=== PATIENT | male | born 1980 | race Caucasian/White ===

== ENCOUNTER 2017-10-29 20:14 | Emergency (ER) | payer OTHER, SELFPAY ==
[2017-10-29 21:02] VITALS: BP 145/85; PULSE 80; RESP 18; TEMP 37; O2SAT 98; BMI 29.5
[2017-10-29 21:13] LABS: UTC Influenza A Antigen Negative (Negative); UTC Influenza B Antigen Negative (Negative); UTC Strep Screen (Rapid) Negative (Negative)
--- NOTE | 2017-10-29 21:25 | HMH.EDUTC ---
[facility] [place]ression: Upper respiratory virus Disposition: Home, Self-Care Condition on Discharge: Good Instructions: DI for Viral Upper Respiratory Infection -- Adult Additional Instructions: * No sign of bacterial infection. Likely viral. Virus can take 7-14 days to run their course. Sounds like the onset of the flu. The rapid test can be negative. The upper resp panel will give us a better idea of what is going on. Since we are closing, have your come over in the morning at 9 since she works here. I will not be here. She can just let them know you were here and I did the upper resp panel and she wants the results. In the meantime, treat yourself like you have the flu and separate yourself from the family once you are home. * Monitor Temp. Tylenol every 4 hours as needed no more then 5 times a day or 4000mg in 24 hours and/or ibuprofen every 6 hours as needed no more then 3200mg in 24 hours (as long as your primary care doctor has told you that it is ok to take both) for fever/aches/pain. ER if fever no less than 101 despite tylenol and ibuprofen * Encourage fluids, water, gatorade, powerade, pedialyte if /toddler/child * lots of rest * warm salt water gargles * warm fluids * sore throat lozenges * sleep elevated * humidifier/vaporizer * OTC cold/flu/sinus medication is ok but pick one. Do not take multiple different ones as they have similar ingredients and you can overdose on cold medication * * Your throat swab was sent for culture. Those results are typically sent to your primary care. Be sure to follow up in 2-3 days if no improvement so they can review those results and treat if necessary. If you don't have primary care, I recommend you get one but in the mean time, you will have to return to a walk in clinic. Referrals: Eamon Garcia MD [Primary Care Provider] - (here tomorrow for results then primary care or if you can't get in, here or ER IMMEDIATELY for new or worsening symptoms, improvement followed by suddenly feeling worse OR no noticeable improvement over the next 48-72 hours. 911 for difficulty breathing ) Forms: Work/School Release Time of Disposition: 21:36 Medical Decision Making Vital Signs: 10/29/17 21:02 Temperature 98.6 F Temperature Source Temporal Artery Scan Pulse Rate [Right] 80 Respiratory Rate 18 Blood Pressure [Right Arm] 145/85 Blood Pressure Mean [Right Arm] 105 Blood Pressure Source [Right Arm] Automatic Cuff Blood Pressure Position [Right Arm] Sitting 02 Sat by Pulse Oximetry 98 Oxygen Delivery Method Room Air - Lab Data Lab results reviewed: Yes: I reviewed the patient's lab results. Lab Results 10/29/17 21:11: Influenza Type A Ag Negative, Influenza Type B Ag Negative, Strep Scn Rapid Clinic Negative Orders (Tests/Meds): ORDERS Category Date Time Status Upper Respiratory Panel, PCR Stat Lab 10/29/17 21:30 Received Strep Screen Confirmation Stat Micro 10/29/17 21:11 Received - Michael Inquiry Pt receiving controlled substance: No [facility] [place] - General Stated complaint: sore throat Time Seen by Provider: 10/29/17 21:25 Mode of Arrival: Ambulatory Source of Information: Patient Limitations: No Limitations Description of Symptoms (Recalled from Triage Doc. by RN): SORE THROAT, FEVER BEGAN THIS AM HEENT Symptoms (Recalled from RN notes): Yes Resp Symptoms (Recalled from RN notes): No Skin Symptoms (Recalled from RN notes): No MS Symptoms (Recalled from RN notes): No Functional Status (Recalled from RN notes): N - History of Present Illness Provider Complaint: c/o really mainly my sore throat . Started at bedtime last night. Just didn't feel great overall . Woke up this morning feeling the same but when got to work, really tired and drianed suddenly. Slept for 2 hours in car before even going into work. Fever 101 and bodyaches around that time. Fever car painter helped. Mild cough, significant sore throat, rhinorrhea has all started t
--- NOTE | 2017-10-29 21:32 | ED_ITS ---
[facility] – [place] Disposition Clinical Impression: Upper respiratory virus Disposition: Home, Self-Care Condition on Discharge: Good Instructions: DI for Viral Upper Respiratory Infection -- Adult Additional Instructions: * No sign of bacterial infection. Likely viral. Virus can take 7-14 days to run their course. Sounds like the onset of the flu. The rapid test can be negative. The upper resp panel will give us a better idea of what is going on. Since we are closing, have your come over in the morning at 9 since she works here. I will not be here. She can just let them know you were here and I did the upper resp panel and she wants the results. In the meantime, treat yourself like you have the flu and separate yourself from the family once you are home. * Monitor Temp. Tylenol every 4 hours as needed no more then 5 times a day or 4000mg in 24 hours and/or ibuprofen every 6 hours as needed no more then 3200mg in 24 hours (as long as your primary care doctor has told you that it is ok to take both) for fever/aches/pain. ER if fever no less than 101 despite tylenol and ibuprofen * Encourage fluids, water, gatorade, powerade, pedialyte if /toddler/ child * lots of rest * warm salt water gargles * warm fluids * sore throat lozenges * sleep elevated * humidifier/vaporizer * OTC cold/flu/sinus medication is ok but pick one. Do not take multiple different ones as they have similar ingredients and you can overdose on cold medication * * Your throat swab was sent for culture. Those results are typically sent to your primary care. Be sure to follow up in 2-3 days if no improvement so they can review those results and treat if necessary. If you don't have primary care , I recommend you get one but in the mean time, you will have to return to a walk in clinic. Referrals: Eamon Garcia MD [Primary Care Provider] - (here tomorrow for results then primary care or if you can't get in, here or ER IMMEDIATELY for new or worsening symptoms, improvement followed by suddenly feeling worse OR no noticeable improvement over the next 48-72 hours. 911 for difficulty breathing * ) Forms: Work/School Release Time of Disposition: 21:36 Medical Decision Making Vital Signs: 10/29/17 21:02 Temperature 98.6 F Temperature Source Temporal Artery Scan Pulse Rate [Right] 80 Respiratory Rate 18 Blood Pressure [Right Arm] 145/85 Blood Pressure Mean [Right Arm] 105 Blood Pressure Source [Right Arm] Automatic Cuff Blood Pressure Position [Right Arm] Sitting 02 Sat by Pulse Oximetry 98 Oxygen Delivery Method Room Air - Lab Data Lab results reviewed: Yes: I reviewed the patient's lab results. Lab Results 10/29/17 21:11: Influenza Type A Ag Negative, Influenza Type B Ag Negative, Strep Scn Rapid Clinic Negative Orders (Tests/Meds): ORDERS Category Date Time Status Upper Respiratory Panel, PCR Stat Lab 10/29/17 21:30 Received Strep Screen Confirmation Stat Micro 10/29/17 21:11 Received - Michael Inquiry Pt receiving controlled substance: No [facility] [place] HPI - General Stated complaint: sore throat Time Seen by Provider: 10/29/17 21:25 Mode of Arrival: Ambulatory Source of Information: Patient Limitations: No Limitations Description of Symptoms (Recalled from Triage Doc. by RN): SORE THROAT, FEVER BEGAN THIS AM HEENT Symptoms (Recalled from RN notes): Yes Resp Symptoms (Recalled from RN notes): No Skin Symptoms (Recalled from RN notes): No MS Sympt
[2017-10-29 21:39] LABS: Adenovirus,PCR Not Detected (NotDetected); Bordetella Pertussis Not Detected (NotDetected); Chlamydophila Pneumoniae, PCR Not Detected (NotDetected); Coronavirus 229E Not Detected (NotDetected); Coronavirus NL63 Not Detected (NotDetected); Coronavirus OC43 Not Detected (NotDetected); Coronovirus HKU1,PCR Not Detected (NotDetected); Human Metapneumovirus Not Detected (NotDetected); Influenza A, PCR Not Detected (NotDetected); Influenza AH1, 2009 Not Detected (NotDetected); Influenza AH1, PCR Not Detected (NotDetected); Influenza AH3,PCR Not Detected (NotDetected); Influenza B, PCR Not Detected (NotDetected); Mycoplasma Pneumoniae, PCR Not Detected (NotDected); Parainfluenza 1, PCR Not Detected (NotDetected); Parainfluenza 2, PCR Not Detected (NotDetected); Parainfluenza 3, PCR Not Detected (NotDetected); Parainfluenza 4, PCR Not Detected (NotDetected); Respiratory Syncytial Virus Not Detected (NotDetected); Rhinovirus/Enterovirus Not Detected (NotDetected)
== END 2017-10-29 21:37 | disposition home or self-care (01) ==
PROVIDERS: Emergency Provider Nurse Practitioner Family; Family Provider Family Medicine; PCP Family Medicine
DX: J06.9 Acute upper respiratory infection, unspecified (principal); Z79.899 Other long term (current) drug therapy
CPT/HCPCS: 87486; 87581; 87633; 87798; 87804; 87880; 99201

== ENCOUNTER → 2020-10-06 11:40 | Outpatient (CLI) | payer OTHER, SELFPAY ==
--- NOTE | 2020-10-06 11:41 | CA_ITS ---
APPROVED REPORT Exam: Exercise Treadmill Technologist: Lorena Mcleod, Ht: 5 ft 9 in Wt: 218 lbs BSA: 2.14 m2 HR: 82 bpm BP: 141/92 mmHg Medical History Medications: Aspirin,,,,, Losartan,,,,, Stress Test Details Test: Luis F HR Resting HR: 93 bpm Max Heart Rate (APMHR): 181 bpm Max HR Achieved: 180 bpm Target HR (85% APMHR): 153 bpm % of APMHR: 99 Recovery HR: 113 bpm BP Resting BP: 144/93 mmHg Max BP: 218/90 mmHg Recovery BP: 144.0/762.0 mmHg ECG Resting ECG: NSR LPFB Clinical Exercise duration: 10:12 min Highest Stage Achieved: Exercise capacity: 12.8 METs Stress ECG Conclusion Pt exercised 10:12 on Luis F Protocol Max HR: 180 % of PM: 99% Max BP: 218/90 METs: 12.8 Test stopped due to: SOA, Fatigue Symptoms: No CP. No arm pain Arrythmias/Ectopy: None ST-T Changes: Normal ST response to exercise Conclusion: Normal GXT. GXT only (no images),hypertensive BP response Test Summary REST . . . . . . . Sitting REST 04:32 0.0 0.0 93 . 144/ 93 . . Stage 1 01:00 10.0 1.7 107 . . . . Stage 1 02:00 10.0 1.7 116 . . . . Stage 1 03:00 10.0 1.7 118 . 174/ 88 . . Stage 2 01:00 12.0 2.5 130 . . . . Stage 2 02:00 12.0 2.5 129 . . . . Stage 2 03:00 12.0 2.5 139 . 206/ 90 . . Stage 3 01:00 14.0 3.4 152 . . . . Stage 3 02:00 14.0 3.4 158 . . . . Stage 3 03:00 14.0 3.4 164 . 218/ 90 . . Stage 4 01:00 16.0 4.2 178 . . . . Stage 4 01:12 16.0 4.2 180 . . . Stop exercise at 10:12 RECOVERY 01:00 0.0 0.0 162 . 180/ 75 . . RECOVERY 02:00 0.0 0.0 142 . 180/ 75 . . RECOVERY 03:00 0.0 0.0 124 . 180/ 75 . . RECOVERY 04:00 0.0 0.0 108 . 168/ 82 . . RECOVERY 05:00 0.0 0.0 114 . 144/ 76 . . RECOVERY 05:40 0.0 0.0 114 . 144/ 76 . . Electronically signed by : Willy Martinez, 10/07/2020 12:23:54
--- NOTE | 2020-10-06 11:41 | CA_ITS ---
APPROVED REPORT EXAM: Comprehensive 2D, Doppler, and color-flow Echocardiogram Lead Software Developer: Hilary Capps RVT Ht: 5 ft 9 in Wt: 218lbs BSA: 2.14 BP: 145/93 mmHg Indications: CP,PALPS,HTN 2D Dimensions LVOT 2.26 cm (M/F) 1.5-2.5 M-Mode Dimensions RVDd 3.46 cm (0.9-2.6) LA Diam 2.74 cm (1.9-4.0) LVDd 3.42 cm (3.5-5.7) Ao Diam 2.96 cm (2.0-3.7) LVDs 2.09 cm (3.5-5.7) IVSd 1.41 cm (0.6-1.1) PWd 0.80 cm (0.6-1.1) EF (Teich) 70.50% FS 38.90% EDV (Teich) 48.10 mL ESV (Teich) 14.20 mL LV Diastology E Decel Time 210.00 (160-240 msec) E/A Ratio 1.1 MED E' 6.20 (< 7 cm/sec) E'/MED E' Ratio 9.95 (>14) LAT E' 8.00 (<10 cm/sec) E/LAT E' Ratio 7.71 (>14) Mitral Valve MV E Max Mauro. 62.00 (40-130 cm/s) MV A Velocity 58.00 (40-130 cm/s) E/A Ratio 1.06 MV Decel. Time 210.00 (160-240 ms) MV PHT 62.00 ms Pulmonary Valve PV Peak Velocity 75.00 (50-150 cm/s) Tricuspid Valve TR P. Velocity 254.00 cm/s RAP Estimate 10.00 mmHg RVSP 35.70 mmHg Left Ventricle Left atrium is normal size, left ventricle is normal size, mild concentric left ventricular hypertrophy, visually estimated ejection fraction 55% with no regional wall motion abnormality, diastolic parameters are inconclusive. Right Ventricle Right atrium and right ventricle are normal size and contractility. Aortic Valve Aortic valve is minimally thickened and fibrosed, there is no aortic stenosis or aortic insufficiency. Mitral Valve Mitral valve is grossly normal. There is no mitral stenosis, there is trace mitral regurgitation. Tricuspid Valve Tricuspid valve is grossly normal, there is trace tricuspid regurgitation. Pulmonic Valve Pulmonic valve is poorly visualized. Great Vessels Aortic root is normal size. Pericardium No significant pericardial effusion noted. Conclusion 1. Normal left ventricular size, mild concentric left ventricular hypertrophy, visually estimated ejection fraction 55% with no regional wall motion abnormality, diastolic parameters are inconclusive. 2. Trace mitral and tricuspid regurgitation. 3. No significant pericardial effusion noted. Electronically signed by : Willy Martinez, 10/07/2020 12:10:22
== END ==
LOC: RT 11:41
PROVIDERS: PCP Family Medicine; Visit Provider Urology
DX: R07.9 Chest pain, unspecified (principal); R00.2 Palpitations; I10 Essential (primary) hypertension
CPT/HCPCS: 93017; 93306

== ENCOUNTER → 2020-10-06 13:17 | Outpatient (CLI) | payer OTHER, SELFPAY ==
[2020-10-06 13:39] LABS: Basophils % 0.8 % (0.1-2.0); Eosinophils # 0.1 K/mm3 (0.0-0.4); Eosinophils % 1.6 % (0.1-12.0); Hematocrit 45.4 % (42.0-52.0); Hemoglobin 15.4 g/dL (14.1-18.0); Lymphocytes # 1.7 K/mm3 (0.7-4.5); Lymphocytes % 34.9 % (10-50); Mean Corpuscular HGB Conc 33.9 g/dL (31.8-35.4); Mean Corpuscular Hemoglobin 28.6 pg (27.0-31.2); Mean Corpuscular Volume 84.2 fl (80-94); Mean Platelet Volume 7.7 fl (7.4-10.4); Monocytes # 0.3 K/mm3 (0.1-1.0); Monocytes % 6.8 % (1.7-9.3); Neutrophils # 2.7 K/mm3 (1.8-7.8); Neutrophils % 55.8 % (37.0-80.0); Platelet Count 288 K/mm3 (142-424); Red Blood Count 5.39 M/mm3 (4.60-6.20); Red Cell Distribution Width 13.7 % (11.5-17.5); White Blood Count 4.9 K/mm3 (4.8-10.8)
[2020-10-06 14:17] LABS: Chloride 102 mmol/L (98-107); Sodium 138 mmol/L (136-145)
[2020-10-06 14:18] LABS: Potassium 4.2 mmoL/L (3.5-5.1)
[2020-10-06 14:20] LABS: Alanine Aminotransferase 30 U/L (12-78); Albumin Level 4.3 g/dl (3.5-5.0); Alkaline Phosphatase 93 U/L (38-126); Anion Gap 11.2 mEq/L (5-15); Aspartate Amino Transferase 28 U/L (17-59); Bilirubin,Direct 0.1 mg/dl (0.0-0.4); Bilirubin,Indirect 0.5 mg/dL (0.0-0.9); Bilirubin,Total 0.6 mg/dl (0.2-1.3); Bilirubin,Unconjugated 0.5 mg/dL (0.0-1.1); Blood Urea Nitrogen 15 mg/dl (9-20); Carbon Dioxide 29 mmol/L (22.0-30.0); Cholesterol 184 mg/dl (140-200); Estimated Glomerular Filt Rate 67 ml/min (>60); GFR (African American) 82 ML/MIN (>60); Glucose 100 mg/dl (74-100); Total Protein,Serum 7.3 g/dl (6.3-8.2); Triglycerides 229 mg/dl (30-150); VLDL Cholesterol 46 mg/dL (0-40)
[2020-10-06 14:21] LABS: Calcium 9.5 mg/dl (8.4-10.2); Chol/HDL Ratio 4.8 (1-3.5); HDL Cholesterol 38 mg/dl (40-60)
[2020-10-06 14:37] LABS: Free T4 (Free Thyroxine) 1.06 ng/dl (0.78-2.19)
[2020-10-06 14:54] LABS: Thyroid Stimulating Hormone 0.38 uIU/mL (0.465-4.68)
== END ==
PROVIDERS: Visit Provider Urology
DX: R07.9 Chest pain, unspecified (principal); R00.2 Palpitations; I10 Essential (primary) hypertension
CPT/HCPCS: 36415; 80048; 80061; 80076; 84439; 84443; 85025

== ENCOUNTER → 2022-12-06 12:48 | Outpatient (CLI) | payer OTHER, SELFPAY ==
[2022-12-06 12:55] LABS: MANUAL DIFFERENTIAL MANUAL DIFFERENTIAL (MANUAL DIFF)
--- NOTE | 2022-12-06 13:03 | XR_ITS ---
FINAL REPORT CLINICAL HISTORY: cough COMPARISON: 06/03/2018 FINDINGS: PA and lateral views of the chest were obtained. The cardiac and mediastinal silhouettes are within normal limits. The lungs are clear. The previously seen right upper lobe pneumonia has resolved. There is no pleural effusion or pneumothorax. No acute osseous abnormality is identified. IMPRESSION: No radiographic evidence of acute cardiac or pulmonary disease. Reviewed, Interpreted and Dictated by Trinity Reid MD Transcribed by Anya Krishnan Authenticated and [facility]
[2022-12-06 14:07] LABS: Chloride 99 mmol/L (98-107); Sodium 137 mmol/L (136-145)
[2022-12-06 14:08] LABS: Basophils % 0.6 % (0.1-2.0); Eosinophils # 0.1 K/mm3 (0.0-0.4); Eosinophils % 0.8 % (0.1-12.0); Hematocrit 41.5 % (42.0-52.0); Hemoglobin 13.9 g/dL (14.1-18.0); Lymphocytes # 1.3 K/mm3 (0.7-4.5); Lymphocytes % 17.6 % (10-50); Mean Corpuscular HGB Conc 33.6 g/dL (31.8-35.4); Mean Corpuscular Hemoglobin 27.9 pg (27.0-31.2); Mean Corpuscular Volume 83.3 fl (80-94); Mean Platelet Volume 7.8 fl (7.4-10.4); Monocytes # 0.8 K/mm3 (0.1-1.0); Monocytes % 10.4 % (1.7-9.3); Neutrophils # 5.2 K/mm3 (1.8-7.8); Neutrophils % 70.6 % (37.0-80.0); Platelet Count 310 K/mm3 (142-424); Red Blood Count 4.98 M/mm3 (4.60-6.20); Red Cell Distribution Width 13.6 % (11.5-17.5); White Blood Count 7.3 K/mm3 (4.8-10.8)
[2022-12-06 14:09] LABS: Blood Urea Nitrogen 16 mg/dl (9-20); Estimated Glomerular Filt Rate 82 ml/min (>60); GFR (African American) 99 ML/MIN (>60)
[2022-12-06 14:10] LABS: Alanine Aminotransferase 35 U/L (12-78); Albumin Level 4.4 g/dl (3.5-5.0); Albumin/Globulin Ratio 1.5 (1.1-1.8); Alkaline Phosphatase 92 U/L (38-126); Aspartate Amino Transferase 25 U/L (17-59); Bilirubin,Total 0.5 mg/dl (0.2-1.3); Calcium 8.6 mg/dl (8.4-10.2); Carbon Dioxide 31 mmol/L (22.0-30.0); Globulin 2.9 g/dL (1.3-3.2); Glucose 93 mg/dl (74-100); Total Protein,Serum 7.3 g/dl (6.3-8.2)
[2022-12-06 17:49] LABS: Lymphocytes % 15 % (10-50); Monocytes % 6 % (2-9); Neutrophils % 79 % (42-76); Platelet Estimate Normal; RBC Morphology Normal; Total Cells Counted 100
[2022-12-07 14:56] LABS: Amylase 62 U/L (30-110); Lipase 88 U/L (23-300)
[2022-12-07 20:05] LABS: Triglycerides 125 mg/dl (30-150); VLDL Cholesterol 25 mg/dL (0-40)
[2022-12-07 20:06] LABS: Chol/HDL Ratio 4.3 (1-3.5); Cholesterol 151 mg/dl (140-200); Direct LDL Cholesterol 92.44 mg/dL (100-129); HDL Cholesterol 35 mg/dl (40-60)
[2022-12-07 20:58] LABS: Hemoglobin A1C 5.7 % (4.0-6.0)
[2022-12-07 21:29] LABS: Free Thyroxine Index 2.8 ug/dL (5.93-13.13); T4 (Thyroxine) 8.3 ug/dl (5.53-11.0); Triiodothryronine (T3) Uptake 34 % (23.5-40.5)
[2022-12-11 14:29] LABS: CA 19-9 16
== END ==
PROVIDERS: Physician Assistant; PCP Family Medicine; Visit Provider Family Medicine
DX: J06.9 Acute upper respiratory infection, unspecified (principal); J32.9 Chronic sinusitis, unspecified; R05 Cough; R50.9 Fever, unspecified; T14.8XXA Other injury of unspecified body region, initial encounter; K85.90 Acute pancreatitis without necrosis or infection, unspecified; N50.9 Disorder of male genital organs, unspecified; R10.9 Unspecified abdominal pain; R73.03 Prediabetes; K86.9 Disease of pancreas, unspecified
CPT/HCPCS: 36415; 71046; 80053; 80061; 82150; 83036; 83690; 84436; 84443; 84479; 85007; 85014; 85018; 85048; 85049; 86316

== ENCOUNTER → 2022-12-07 11:29 | Outpatient (CLI) | payer OTHER, SELFPAY ==
--- NOTE | 2022-12-07 11:35 | CT_ITS ---
FINAL REPORT TECHNIQUE: Pre-and postcontrast axial imaging of the abdomen and pelvis was obtained.This study was performed with techniques to keep radiation doses as low as reasonably achievable, (ALARA). Individualized dose reduction technique using automated exposure control or adjustment of mA and/or kV according to the patient's size were employed. CLINICAL HISTORY: flank pain, scrotal disorder FINDINGS: The lung bases are clear. There is diffuse fatty infiltration of the liver. The gallbladder is present. The spleen and adrenal glands are unremarkable. There is a hypodense lesion in the tail of the pancreas measuring 16 mm. Several punctate calcifications are seen within this. The tail of the pancreas is otherwise slightly enlarged with loss of normal pancreatic clefts. There may be very mild surrounding abnormal attenuation. This may all be related to autoimmune pancreatitis. There is no hydronephrosis or solid renal mass. On precontrast imaging, no renal stones are identified. There is no lymphadenopathy or ascites. The pelvic organs and pelvic portions of the GI tract, including the appendix, are within normal limits. The prostate and urinary bladder are normal. There is no lymphadenopathy or ascites. No acute osseous abnormalities identified. IMPRESSION: No renal or ureteral stones. No hydronephrosis. 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 Recommend correlation with lab studies and consider follow-up. Reviewed, Interpreted and Dictated by Trinity Reid MD Transcribed by Anya Krishnan Authenticated and [facility]
== END ==
LOC: RAD 11:32
PROVIDERS: PCP Family Medicine; Visit Provider Family Medicine
DX: R10.9 Unspecified abdominal pain (principal); N50.9 Disorder of male genital organs, unspecified; R05 Cough
CPT/HCPCS: 74178; Q9967

== ENCOUNTER → 2022-12-11 12:34 | Outpatient (CLI) | payer OTHER, SELFPAY ==
[2022-12-11 13:30] LABS: Cholesterol 169 mg/dl (140-200); Triglycerides 148 mg/dl (30-150); VLDL Cholesterol 30 mg/dL (0-40)
[2022-12-11 13:31] LABS: Chol/HDL Ratio 5.1 (1-3.5); HDL Cholesterol 33 mg/dl (40-60)
[2022-12-11 13:41] LABS: Direct LDL Cholesterol 103.98 mg/dL (100-129)
[2022-12-11 14:01] LABS: Thyroid Stimulating Hormone 0.38 uIU/mL (0.465-4.68)
[2022-12-12 16:14] LABS: Anti-Centromere B Antibodies <0.2 AI (0.0-0.9); Anti-DNA (DS) Ab Qn <1 IU/mL (0-9); Anti-Jo-1 <0.2 AI (0.0-0.9); Anti-Smith Antibody <0.2 AI (0.0-0.9); Antichromatin Antibodies <0.2 AI (0.0-0.9); Antiscleroderma-70 Antibodies <0.2 AI (0.0-0.9); RNP Antibodies <0.2 AI (0.0-0.9); Sjogren's Anti-SS-A <0.2 AI (0.0-0.9); Sjogren's Anti-SS-B <0.2 AI (0.0-0.9)
== END ==
PROVIDERS: PCP Family Medicine; Visit Provider Family Medicine
DX: I10 Essential (primary) hypertension (principal); K86.9 Disease of pancreas, unspecified
CPT/HCPCS: 36415; 80061; 84443; 86225; 86235

== ENCOUNTER → 2023-01-07 15:43 | Outpatient (CLI) | payer OTHER, SELFPAY ==
--- NOTE | 2023-01-07 16:51 | US_ITS ---
FINAL REPORT CLINICAL HISTORY: .palpable area on left FINDINGS: Technique: Ultrasound images of the testicles were obtained. Findings: The testicles are normal in size. No intratesticular mass identified. Arterial flow is identified bilaterally. There are epididymal cysts versus small spermatoceles on the right. There is a small varicocele corresponding to the palpable abnormality on the left. There is a trace left hydrocele. IMPRESSION: No intratesticular mass or evidence of torsion. Small left varicocele corresponding to the palpable abnormality. Epididymal cysts versus small to spermatoceles on the right. Reviewed, Interpreted and Dictated by Gene Beltran MD Transcribed by Joey Dutton Authenticated and [facility]
--- NOTE | 2023-01-07 16:53 | US_ITS ---
FINAL REPORT CLINICAL HISTORY: hyperthyroid FINDINGS: THYROID ULTRASOUND The right lobe of the thyroid measures 5.6 x 1.9 x 1.7 cm. The left lobe of the thyroid measures 4.7 x 2.3 x 2.2 cm. The parenchyma shows normal echogenicity. There is a 5 x 5 x 4 mm hypoechoic and solid TI-RADS 4 left thyroid nodule. IMPRESSION: Subcentimeter TI-RADS 4 left thyroid nodule. No follow-up required. Reviewed, Interpreted and Dictated by Gene Beltran MD Transcribed by Joey Dutton Authenticated and [facility]
[2023-01-09 19:49] LABS: IgG, Subclass 1 475 mg/dL (248-810); IgG, Subclass 2 350 mg/dL (130-555); IgG, Subclass 3 70 mg/dL (15-102); IgG, Subclass 4 87 mg/dL (2-96); Immunoglobulin G, Qn 1043 mg/dL (603-1613)
== END ==
PROVIDERS: Nurse Practitioner Family; PCP Family Medicine; Visit Provider Family Medicine
DX: N50.9 Disorder of male genital organs, unspecified (principal); E05.90 Thyrotoxicosis, unspecified without thyrotoxic crisis or storm; R79.89 Other specified abnormal findings of blood chemistry; R94.6 Abnormal results of thyroid function studies
CPT/HCPCS: 36415; 76536; 76870; 82784; 82787

== ENCOUNTER → 2023-01-14 15:57 | Outpatient (CLI) | payer OTHER, SELFPAY ==
[2023-01-14 17:51] LABS: Thyroid Stimulating Hormone 0.55 uIU/mL (0.465-4.68)
== END ==
PROVIDERS: PCP Family Medicine; Visit Provider Family Medicine
DX: E05.90 Thyrotoxicosis, unspecified without thyrotoxic crisis or storm (principal)
CPT/HCPCS: 36415; 84443

== ENCOUNTER 2023-07-13 10:31 | Emergency (ER) | payer OTHER, SELFPAY ==
[2023-07-13 10:40] VITALS: BP 112/79; PULSE 93; RESP 20; TEMP 37.4; O2SAT 98; BMI 28.8
--- NOTE | 2023-07-13 10:43 | EXP.UTC ---
Discharge Plan Disposition Patient Disposition: Home, Self-Care Condition: Good Prescriptions Prescriptions: New amoxicillin-pot clavulanate 875-125 mg Tablet 1 tab PO Q12H Qty: 20 0RF No Action losartan 50 mg tablet 50 mg PO DAILY citalopram 10 mg tablet 10 mg PO DAILY semaglutide 2 mg/dose (8 mg/3 mL) pen injector 2 mg SQ WEEKLY Referrals Follow up/Referrals: Mari Nvaa APRN [Primary Care Provider] - See instructions Clinical Impressions Clinical Impression: Acute tonsillitis Instructions Patient Instructions: DI for Pharyngitis/Tonsillopharyngitis -- Adult Discharge ED Provider: Mel Daniel [facility] [place] HPI General Stated complaint: sore throat fever 100 Time Seen by Provider: 07/13/23 11:06 History of Present Illness Provider Complaint: Fever, body aches, chills, sore throat X 3-4 days. Mild headache. No ear pain. No congestion. No vomiting or diarrhea. Onset (ago): day(s) (3) Relieving factors: none Exacerbating factors: none Associated symptoms: fever/chills and headaches Treatments prior to arrival: NSAID Related Data Home Medications Medication Instructions Recorded Confirmed citalopram 10 mg tablet 10 mg PO DAILY . 07/13/23 07/13/23 losartan 50 mg tablet 50 mg PO DAILY Hypertension 07/13/23 07/13/23 semaglutide 2 mg/dose (8 mg/3 mL) 2 mg SQ WEEKLY . 07/13/23 07/13/23 subcutaneous pen injector Previous Rx's Medication Instructions Recorded amoxicillin 875 mg-potassium 1 tab PO Q12H #20 tabs 07/13/23 clavulanate 125 mg tablet Allergies Allergy/AdvReac Type Severity Reaction Status Date / Time No Known Allergies Allergy Verified 04/11/23 16:04 [facility] Disclaimer: The information contained in this section may have been updated after the patient was seen, as this information can be updated by other users. Medical History (Updated 07/13/23 @ 11:15 by PASCUAL Tobar) Anxiety BMI 31.0-31.9,adult BMI 33.0-33.9,adult Cough Fever Flank pain, acute Hypertension Left varicocele Muscle strain Pre-diabetes Scrotal disorder Sinusitis Upper respiratory virus Surgical History H/O vasectomy Social History Smoking Status: Never smoker alcohol intake: current substance use type: denies use current occupational status: employed Travel in the last 8 weeks: None ROS Obtained: Yes All systems reviewed & no additional complaints except as documented Constitutional Constitutional: Reports fever(s) and Reports headache(s) ENT Ears, Nose, Mouth, and Throat: Reports headache(s) and Reports sore throat Neurologic Neurologic: Reports headache(s) Physical Exam General General appearance: alert and in no apparent distress Head Head exam: atraumatic, normocephalic and normal inspection Eye Eye exam: Present normal appearance, PERRL and EOMI ENT ENT exam: Present normal exam, mucous membranes moist, TM's normal bilaterally and normal external ear exam Expanded ENT Exam Throat exam: Present tonsillar erythema, tonsillomegaly and tonsillar exudate Neck Neck exam: Present normal inspection, full ROM and trachea midline; Absent meningismus or lymphadenopathy Chest Chest inspection: Present normal inspection and symmetric chest wall rise; Absent tenderness Respiratory Respiratory exam: Present normal lung sounds bilaterally; Absent respiratory distress Cardiovascular Cardiovascular exam: Present regular rate and normal rhythm; Absent JVD Abdominal Exam Abdominal exam: Present soft and normal bowel sounds; Absent distention, tenderness or guarding Extremities Exam Extremities exam: Present normal inspection, full ROM and normal capillary refill; Absent calf tenderness Back Exam Back exam: Present normal inspection; Absent tenderness Neurological Exam Neurological exam: Present alert and oriented X3 Psychiatri
[2023-07-13 10:56] LABS: UTC Strep Screen (Rapid) Negative (Negative)
[2023-07-13 11:01] VITALS: BP 112/79; PULSE 93; RESP 20; TEMP 37.4; O2SAT 98
== END 2023-07-13 11:29 | disposition home or self-care (01) ==
PROVIDERS: Emergency Provider Physician Assistant; PCP Nurse Practitioner Family
DX: J03.90 Acute tonsillitis, unspecified (principal); R50.9 Fever, unspecified; R51.9 Headache, unspecified; R73.03 Prediabetes; I10 Essential (primary) hypertension; F41.9 Anxiety disorder, unspecified
CPT/HCPCS: 87880; 99212; 99214; G0463